=== PATIENT | male | born 1975 | race Caucasian/White ===

== ENCOUNTER → 2019-04-05 | Outpatient (REF) ==
--- NOTE | 2019-04-05 13:33 | RADIOLOGY IMAGING REPORT ---
FACILITY: [facility] [place] PATIENT NAME: Francesco Scott : 1975 MR: [id number] V: [id number] EXAM DATE: ORDERING PHYSICIAN: ALIVIA JONES TECHNOLOGIST: Location: [facility] Patient: Francesco Scott : 1975 Visit/Account:[id number] Date of Sevice: 04/05/2019 CHEST PA LAT HISTORY: Positive PPD. COMPARISON: None FINDINGS: Cardiomediastinal contours: The heart size is normal. Lungs and pleura: There is no finding of an infiltrate, lymphadenopathy or pleural effusion. There a re no calcified parenchymal lesions and there are no calcified lymph nodes in the mediastinum. Bones/soft tissues: There are no findings of a fracture. IMPRESSION: Normal chest x-ray without findings of acute disease. Report Dictated By: Keven Solis MD at 04/05/2019 1:25 PM Report E-Signed By: Keven Solis MD at 04/05/2019 1:26 PM WSN:[id number]
== END ==
LOC: RAD 12:44
PROVIDERS: ATTEND Internal Medicine
DX: R76.11 Nonspecific reaction to tuberculin skin test without active tuberculosis (principal)
CPT/HCPCS: 71046